=== PATIENT | male | born 1940 | race Caucasian/White ===

== ENCOUNTER 2019-06-29 19:58 | Emergency (ER) | payer OTHER ==
[~2019-06-29] VITALS: Ht 177.8 cm; Wt 74.8 kg
[~2019-06-29 19:58] MED LIST: [UNRECOGNIZED DRUG - REMARK]
[2019-06-29 20:05] VITALS: BP 141/77
--- NOTE | 2019-06-29 20:05 | NUR ---
TO BED # 08 VIA WHEELCHAIR
--- NOTE | 2019-06-29 20:14 | NUR ---
pt wheel chair assisted to bed 10.
--- NOTE | 2019-06-29 20:30 | NUR ---
PT SEATED IN BED UPRIGHT AND ATTACHED TO MONITORING SYSTEM. WILL CONTINUE TO MONITOR.
--- NOTE | 2019-06-29 20:50 | NUR ---
Dr. Cesar examining patient.
--- NOTE | 2019-06-29 21:40 | NUR ---
PT TAKEN TO CT
[2019-06-29 21:57] LABS: BASOPHILS # (AUTO) 0.1 K/uL (0.00-0.22); BASOPHILS % (AUTO) 1.3 % (0.0-2.0); EOSINOPHILS # (AUTO) 0.1 K/uL (0-0.4); HEMOGLOBIN 17.3 g/dL (12.0-18.0); LYMPHOCYTES # (AUTO) 1.1 K/uL (2.0-11.5); LYMPHOCYTES % (AUTO) 17.8 % (20.5-51.1); MEAN CORPUSCULAR HEMOGLOBIN 30 pg (27-31); MEAN CORPUSCULAR HGB CONC 34 g/dL (33-37); MEAN CORPUSCULAR VOLUME 89.8 fL (80-94); MONOCYTES # (AUTO) 0.3 K/uL (0.8-1.0); MONOCYTES % (AUTO) 5.4 % (1.7-9.3); NEUTROPHILS # (AUTO) 4.5 K/uL (1.8-7.7); NEUTROPHILS % (AUTO) 74.5 % (42.2-75.2); PLATELET COUNT (AUTO) 153 K/uL (140-450); RED BLOOD CELL COUNT(AUTO) 5.68 MIL/uL (4.20-6.10); RED CELL DISTRIBUTION WIDTH 14.1 % (11.6-13.7)
[2019-06-29 22:10] LABS: APPEARANCE,URINE CLEAR (CLEAR); BILIRUBIN,URINE NEGATIVE (NEGATIVE); BLOOD, URINE 1+ (NEGATIVE); COLOR,URINE YELLOW (YELLOW); LEUKOCYTE ESTERASE ,URINE NEGATIVE (NEGATIVE); NITRITE, URINE NEGATIVE (NEGATIVE); UGLUCOSE 1+ (NEGATIVE)
[2019-06-29 22:23] LABS: ALBUMIN 3.6 g/dL (3.4-5.0); ANION GAP 12.8 (8-16); ASPARTATE AMINOTRANSFERASE 25 U/L (15-37); CARBON DIOXIDE 29.5 mmol/L (21-32); CHLORIDE 103 mmol/L (98-107); GLUCOSE 173 mg/dL (74-106); LIPASE 602 U/L (73-393); POTASSIUM 4.3 mmol/L (3.5-5.1); SODIUM SERUM 141 mmol/L (136-145); TOTAL BILIRUBIN 0.6 mg/dL (0.0-1.0); UREA NITROGEN, BLOOD 25 mg/dL (7-18)
--- NOTE | 2019-06-29 22:50 | NUR ---
PT REPORTS EPIGASTRIC PAIN, 10/10 PAIN. ERMD MADE AWARE.
[2019-06-29 23:31] LABS: WBC,URINE 0-5 /HPF (0-5)
[2019-06-29] MEDS: NACL 0.9% 1,000 ML IV ONE (23:31)
[2019-06-29] MEDS: ONDANSETRON 4 MG/2 ML VIAL IVP ONE (23:32)
[2019-06-29] MEDS: MORPHINE SULFATE 4 MG/ML SYR IVP ONE (23:32)
--- NOTE | 2019-06-30 00:40 | NUR ---
PT REPORTS DECREASED PAIN LEVEL. 02 SAT AT 97%. RR EVEN AN UNLABORED. WILL CONTINUE TO MONITOR.
[2019-06-30] MEDS ORDERED: TRAZ-343 PO (01:00)
[2019-06-30] MEDS ORDERED: GABA300C PO (01:00)
[2019-06-30] MEDS ORDERED: SPIMDI INH (01:00)
[2019-06-30] MEDS ORDERED: TAMS0.4C97 PO (01:00)
[2019-06-30] MEDS ORDERED: METF1000 PO (01:00)
[2019-06-30] MEDS ORDERED: ALBU0.0912 IH (01:00)
[2019-06-30] MEDS ORDERED: SAXA5TAB PO (01:00)
[2019-06-30] MEDS ORDERED: OMEP20TC10 PO (01:00)
[2019-06-30] MEDS ORDERED: DONE5TAB6 PO (01:00)
[2019-06-30] MEDS ORDERED: [UNRECOGNIZED DRUG - OTHER] (01:00)
[2019-06-30] MEDS ORDERED: CANA300T PO (01:00)
--- NOTE | 2019-06-30 01:22 | NUR ---
CALLED LAUREL TOMLINSON S/W [facility]LE[facility] TO GIVE REPORT ON PT CONDITION. ETA FOR PICKUP 30 MINS
--- NOTE | 2019-06-30 01:30 | NUR ---
PT HAD ONE EPISODE OF VOMITTING. ERMD NOTIFIED.
[2019-06-30] MEDS: ONDANSETRON 4 MG/2 ML VIAL IVP ONE (01:43)
[2019-06-30 01:48] VITALS: BP 124/82
--- NOTE | 2019-06-30 02:00 | NUR ---
VOMITTING RESOLVED. WILL CONTINUE TO MONITOR.
--- NOTE | 2019-06-30 02:10 | NUR ---
[facility] AT BEDSIDE FOR TRANSPORT.
--- NOTE | 2019-06-30 02:15 | NUR ---
PT DISCHARGED TO [facility] IN STABLE CONDITION. S/W [facility] AT [facility] TO INFORM THAT PT IS IN ROUTE.
== END 2019-06-30 02:15 | disposition short-term general hospital (02) ==
LOC: MED 19:58
DX: R10.13 Epigastric pain (principal); R11.10 Vomiting, unspecified; R51 Headache; J44.9 Chronic obstructive pulmonary disease, unspecified; E11.9 Type 2 diabetes mellitus without complications; I10 Essential (primary) hypertension; F03.90 Unspecified dementia, unspecified severity, without behavioral disturbance, psychotic disturbance, mood disturbance, and anxiety; Z79.899 Other long term (current) drug therapy; Z79.84 Long term (current) use of oral hypoglycemic drugs; Z98.890 Other specified postprocedural states
CPT/HCPCS: 36415; 74176; 80053; 81001; 83690; 84484; 85025; 96361; 96374; 96375; 96376; 99284; J2270; J2405; J7030